=== PATIENT | female | born 1970 | race Two or more races ===

== ENCOUNTER 2019-04-10 18:23 | Emergency (ER) | payer SELFPAY ==
[~2019-04-10] VITALS: Ht 167.6 cm; Wt 82.0 kg
[2019-04-10] MEDS ORDERED: CYCLOBENZAPRINE 10MG TABLET PO ONE (20:00)
[2019-04-10] MEDS ORDERED: IBUPROFEN 600MG TABLET PO ONE (20:00)
[2019-04-10 21:15] VITALS: BP 145/84
== END 2019-04-10 21:36 | disposition home or self-care (01) ==
LOC: ER 21:18
DX: M75.31 Calcific tendinitis of right shoulder (principal); M25.511 Pain in right shoulder; Y08.89XA Assault by other specified means, initial encounter; Y93.89 Activity, other specified; Y92.89 Other specified places as the place of occurrence of the external cause; Y99.8 Other external cause status
CPT/HCPCS: 73030; 99283; L3670